=== PATIENT | male | born 1975 | race Caucasian/White ===

== ENCOUNTER 2016-09-28 05:16 | Emergency (ER) | payer BC, OTHER ==
[~2016-09-28] VITALS: Ht 190.5 cm; Wt 158.8 kg
[2016-09-28 06:06] LABS: Basophils # (auto) 0.1 uL; Basophils % (auto) 0.5 % (0.0-2.0); Eosinophils # (auto) 0.2 uL; Eosinophils % (auto) 1.5 % (0.0-7.0); Hemoglobin 16.4 g/dL (13.5-17.5); Lymphocytes # (auto) 2.3 uL; Lymphocytes % (auto) 19.6 % (10.0-50.0); Mean Corpuscular Hgb Conc. 33.5 g/dL (32.0-36.0); Mean Corpuscular Volume 83.7 fL (80.0-100.0); Monocytes # (auto) 0.8 uL; Monocytes % (auto) 6.9 % (0.0-12.0); Neutrophils # (auto) 8.4 uL; Neutrophils % (auto) 71.5 % (37.0-80.0); Platelet Count (auto) 236 10^3/uL (140-450); Red Cell Distribution Width 12.9 % (11.6-16.0); White Blood Cell 11.8 10^3/uL (4.4-10.8)
[2016-09-28 06:42] LABS: Albumin 3.5 g/dL (3.4-5.0); BUN/Creatinine Ratio 12.1; Bilirubin, Total 0.9 mg/dL (0.2-1.0); Calcium 8.8 mg/dL (8.5-10.1); Potassium 4.1 mmol/L (3.5-5.1); Total Protein 7.6 g/dL (6.4-8.2)
[2016-09-28] MEDS ORDERED: SODIUM CHLORIDE 0.9% 1,000 ML IVB ONE (07:09)
[2016-09-28] MEDS ORDERED: KETOROLAC TROMETH 30 MG/ML 1ML VIAL IV ONE (07:15)
[2016-09-28] MEDS ORDERED: ONDANSETRON HCL 4 MG/2 ML VIAL IV ONE (07:15)
[2016-09-28 07:35] VITALS: BP 144/80
[2016-09-28 07:46] LABS: Amylase 75 U/L (25-115)
== END 2016-09-28 09:04 | disposition home or self-care (01) ==
LOC: ER 05:17
DX: N20.9 Urinary calculus, unspecified (principal); R11.2 Nausea with vomiting, unspecified
CPT/HCPCS: 36415; 74176; 80053; 82150; 83690; 85025; 94761; 96361; 96374; 96375; 99285; J1885; J2405; J7030

== ENCOUNTER 2017-02-13 16:18 | Emergency (ER) | payer BC ==
[~2017-02-13] VITALS: Ht 190.5 cm; Wt 167.8 kg
[2017-02-13 21:14] LABS: Basophils # (auto) 0.1 uL; Basophils % (auto) 0.9 % (0.0-2.0); Eosinophils # (auto) 0.3 uL; Eosinophils % (auto) 3.9 % (0.0-7.0); Hematocrit 48.3 % (41.0-53.0); Hemoglobin 16.6 g/dL (13.5-17.5); Lymphocytes # (auto) 1.8 uL; Lymphocytes % (auto) 21.1 % (10.0-50.0); Mean Corpuscular Hemoglobin 29.6 pg (28.0-32.0); Mean Corpuscular Hgb Conc. 34.3 g/dL (32.0-36.0); Mean Corpuscular Volume 86.3 fL (80.0-100.0); Mean Platelet Volume 7.3 fL (6.9-10.8); Monocytes # (auto) 0.6 uL; Monocytes % (auto) 6.4 % (0.0-12.0); Neutrophils # (auto) 5.9 uL; Neutrophils % (auto) 67.7 % (37.0-80.0); Nucleated Red Blood Cells % 0.8 %; Platelet Count (auto) 259 10^3/uL (140-450); Red Cell Distribution Width 13.4 % (11.8-14.3); White Blood Cell 8.7 10^3/uL (4.4-10.8)
[2017-02-13 21:27] LABS: Urine Bilirubin Negative (Negative); Urine Blood 2+ /uL (Negative); Urine Color Yellow (Yellow); Urine Glucose Normal (Normal); Urine Ketone 2+ (Negative); Urine Mucus FEW (None Seen); Urine Nitrite Negative (Negative); Urine RBC 96 /hpf (0 - 3); Urine Squamous Epithelial Cell FEW /hpf (<5); Urine pH 5.5 (5.0-8.0)
[2017-02-13 21:33] LABS: Albumin 3.7 g/dL (3.4-5.0); BUN/Creatinine Ratio 16.8; Calcium 9.5 mg/dL (8.5-10.1); Potassium 3.7 mmol/L (3.5-5.1); Total Protein 8.6 g/dL (6.4-8.2)
[2017-02-13 21:48] LABS: INR 1.05 (0.9-1.15); Partial Thromboplastin Time 37.2 sec (22.64-33.71); Prothrombin Time 11.4 sec (9.37-12.3)
[2017-02-13] MEDS ORDERED: HYDROmorphone HCL 2 MG/ML VL IV ONE (22:30)
[2017-02-13] MEDS ORDERED: ONDANSETRON HCL 4 MG/2 ML VIAL IV ONE (22:30)
[2017-02-13] MEDS ORDERED: cefTRIAXone 1GM/50ML D5W 50 ML IV ONE (22:45)
[2017-02-14] MEDS ORDERED: HYDROmorphone HCL 2 MG/ML VL IV ONE (00:15)
[2017-02-14 00:41] VITALS: BP 127/69
== END 2017-02-14 01:43 | disposition home or self-care (01) ==
LOC: ER 16:21
DX: M79.605 Pain in left leg (principal); M79.89 Other specified soft tissue disorders; K21.9 Gastro-esophageal reflux disease without esophagitis; Z98.890 Other specified postprocedural states
CPT/HCPCS: 36415; 74176; 80053; 81001; 83690; 85025; 85610; 85730; 93971; 96365; 96375; 96376; 99285; J0696; J1170; J2405; J7030

== ENCOUNTER 2019-06-17 19:47 | Inpatient (IN) | payer BC ==
[~2019-06-17] VITALS: Ht 190.5 cm; Wt 156.0 kg
[2019-06-17] MEDS ORDERED: SODIUM CHLORIDE 0.9% 1,000 ML IV ONE (20:01)
[2019-06-17] MEDS ORDERED: ONDANSETRON HCL 4 MG/2 ML VIAL IV ONE (20:15)
[2019-06-17] MEDS ORDERED: DIPHENOXYLATE W/ATROPINE 2.5 MG TAB PO ONE (20:15)
[2019-06-17] MEDS ORDERED: KETOROLAC TROMETH 30 MG/ML 1ML VIAL IV ONE (20:15)
[2019-06-17] MEDS ORDERED: ACETAMINOPHEN 500 MG TAB PO ONE (20:15)
[2019-06-17 21:03] LABS: Basophils # (auto) 0 uL; Eosinophils # (auto) 0 uL; Eosinophils % (auto) 0.1 % (0.0-7.0); Lymphocytes # (auto) 0.4 uL; Monocytes # (auto) 0.2 uL
[2019-06-17 21:05] LABS: Basophils % (auto) 0.4 % (0.0-2.0); Hematocrit 25.3 % (41.0-53.0); Hemoglobin 8.8 g/dL (13.5-17.5); Lymphocytes % (auto) 9.5 % (10.0-50.0); Mean Corpuscular Hemoglobin 32.7 pg (28.0-32.0); Mean Corpuscular Hgb Conc. 34.9 g/dL (32.0-36.0); Mean Corpuscular Volume 93.4 fL (80.0-100.0); Monocytes % (auto) 3.4 % (0.0-12.0); Neutrophils # (auto) 3.8 uL; Neutrophils % (auto) 86.6 % (37.0-80.0); Nucleated Red Blood Cells % 1.6 %; Platelet Count (auto) 37 10^3/uL (140-450); Red Blood Cells 2.71 10^6/uL (4.5-5.90); White Blood Cell 4.4 10^3/uL (4.4-10.8)
[2019-06-17 21:08] LABS: Red Cell Distribution Width 20.3 % (11.8-14.3)
[2019-06-17 21:21] LABS: Albumin 2.8 g/dL (3.4-5.0); Anion Gap 13 (5-15); Blood Urea Nitrogen 22 mg/dL (7-18); Calcium 8.9 mg/dL (8.5-10.1); Carbon Dioxide 20 mmol/L (21-32); Chloride 108 mmol/L (98-107); Glucose 345 mg/dL (74-106); Magnesium 1.5 mg/dL (1.6-2.6); Potassium 3.7 mmol/L (3.5-5.1); Sodium 141 mmol/L (136-145)
[2019-06-17 21:26] LABS: Alanine Aminotransferase 23 U/L (16-61); Alkaline Phosphatase 99 U/L (45-117); Aspartate Aminotransferase 33 U/L (15-37); BUN/Creatinine Ratio 15.3; Bilirubin, Total 0.7 mg/dL (0.2-1.0); GFR African American 68 mL/min; GFR Non-African American 56 mL/min; Total Protein 6.6 g/dL (6.4-8.2)
[2019-06-17 23:51] LABS: Urine Bacteria MOD /hpf (None Seen); Urine Blood 1+ /uL (Negative); Urine Hyaline Cast MOD /lpf (0 - 2); Urine Mucus FEW (None Seen); Urine Specific Gravity 1.022 (1.001-1.035); Urine WBC 209 /hpf (0 - 3)
[2019-06-18] MEDS ORDERED: CEFTRIAXONE SODIUM 2 GM in D5W 5% 50 ML IV ONE (02:15)
[2019-06-18] MEDS ORDERED: ACETAMINOPHEN 325 MG TAB PO PRN (02:45)
[2019-06-18] MEDS ORDERED: DEXTROSE (50%) 50ML SYRG IV PRN (02:45)
[2019-06-18] MEDS ORDERED: TEMAZEPAM 15 MG CAP PO PRN (02:45)
[2019-06-18] MEDS ORDERED: SODIUM CHLORIDE 0.9% 1,000 ML IV SCH (02:45)
[2019-06-18] MEDS ORDERED: cefTRIAXone SOD 1,000 MG VL ONE (03:13)
[2019-06-18 03:47] VITALS: BP 106/69
[2019-06-18 04:00] VITALS: BP 106/69
[2019-06-18] MEDS: HYDROcodone-ACET 5/325MG TAB PO PRN ×3 (04:00→20:53)
[2019-06-18] MEDS: ONDANSETRON HCL 4 MG/2 ML VIAL IV PRN ×2 (04:00→21:04)
[2019-06-18] MEDS ORDERED: ATOR20TA50 PO (05:34)
[2019-06-18] MEDS ORDERED: OMEG120015 PO (05:34)
[2019-06-18] MEDS ORDERED: ALBU108A5 IN (05:34)
[2019-06-18] MEDS ORDERED: SEMA2INJ SC (05:34)
[2019-06-18] MEDS ORDERED: ONDA-143 PO (05:34)
[2019-06-18] MEDS ORDERED: SIRO1TAB4 PO (05:34)
[2019-06-18] MEDS ORDERED: CHOL200039 PO (05:34)
[2019-06-18] MEDS ORDERED: POM PO (05:34)
[2019-06-18] MEDS ORDERED: TACR0.5C3 PO (05:34)
[2019-06-18] MEDS ORDERED: LOSA25TA38 PO (05:34)
[2019-06-18] MEDS ORDERED: HYDR2TAB58 PO (05:34)
[2019-06-18] MEDS ORDERED: DIPH2.5T73 PO (05:34)
[2019-06-18] MEDS ORDERED: PRO10T PO (05:34)
[2019-06-18] MEDS ORDERED: SILD50TA42 PO (05:34)
[2019-06-18] MEDS ORDERED: BUDE9TAB PO (05:34)
[2019-06-18] MEDS ORDERED: ACYC1CAP23 PO (05:34)
[2019-06-18] MEDS ORDERED: TACR1CAP4 PO (05:34)
[2019-06-18] MEDS ORDERED: PANT1INJ3 PO (05:34)
[2019-06-18] MEDS ORDERED: INSU100I49 SC ×3 (05:34)
[2019-06-18] MEDS ORDERED: INSLANTI SC (05:34)
[2019-06-18] MEDS ORDERED: POSA100T PO (05:34)
[2019-06-18] MEDS ORDERED: [UNRECOGNIZED DRUG - CODE] PO (05:34)
[2019-06-18] MEDS: SUCRALFATE 1 GM TAB PO SCH ×2 (06:05→06:25)
[2019-06-18] MEDS: ACCU-CHEK COMFORT CURVE STRIP VI SCH ×3 (06:05→18:00)
[2019-06-18] MEDS: InsuLIN REG 1unit/0.01ml Soln (100units/ml) SC SCH ×3 (06:24→18:00)
[2019-06-18] MEDS ORDERED: cefTRIAXone 1GM/50ML D5W 50 ML IV SCH (09:00)
[2019-06-18 09:11] LABS: Lactic Acid w/Reflex 2.3 mmol/L (0.4-2.0)
[2019-06-18] MEDS: OMEPRAZOLE 20MG/10ML ORAL SUSP PO SCH (10:13)
[2019-06-18 12:30] VITALS: BP 103/60
[2019-06-18] MEDS ORDERED: VANCOMYCIN HCL 125MG/5ML ORAL SOL GT ONE (12:30)
[2019-06-18] MEDS: SODIUM CHLORIDE 0.9% 1,000 ML IV SCH ×2 (12:30→20:53)
[2019-06-18] MEDS ORDERED: PIPERACILLIN-TAZO 4.5GM 100 ML IV ONE (12:30)
[2019-06-18 14:20] LABS: Lactic Acid w/Reflex 2.2 mmol/L (0.4-2.0)
[2019-06-18 17:16] VITALS: BP 108/70
[2019-06-18] MEDS: SUCRALFATE 1 GM/10 ML ORAL SUSP PO SCH ×3 (17:39→22:58)
[2019-06-18] MEDS: VANCOMYCIN HCL 125MG/5ML ORAL SOL PO SCH ×2 (17:52→17:53)
[2019-06-18] MEDS ORDERED: PIPERACILLIN-TAZO 4.5GM 100 ML IV SCH (18:00)
[2019-06-18] MEDS: ACETAMINOPHEN 650 mg PER 20 mL UD PO PRN (20:53)
[2019-06-18] MEDS: PIPERACILLIN-TAZO 4.5GM 100 ML IV SCH (20:54)
[2019-06-18] MEDS: ATORVASTATIN 20 MG TAB PO SCH (22:39)
[2019-06-18] MEDS: LOPERAMIDE HCL 2 MG CAP PO PRN (22:39)
[2019-06-18] MEDS: FLORASTOR (S. BOULARDII) 250 MG CAP PO SCH (22:39)
[2019-06-19] VITALS (13 sets, daily range): BP systolic 92–164; BP diastolic 42–78
[2019-06-19] MEDS: ACCU-CHEK COMFORT CURVE STRIP VI SCH ×5 (00:32→23:41)
[2019-06-19] MEDS: InsuLIN REG 1unit/0.01ml Soln (100units/ml) SC SCH ×6 (00:33→23:41)
[2019-06-19] MEDS: PIPERACILLIN-TAZO 4.5GM 100 ML IV SCH ×2 (00:34→06:38)
[2019-06-19] MEDS ORDERED: PIPERACILLIN-TAZO 4.5GM 100 ML IV ONE (05:53)
[2019-06-19 06:16] LABS: Hematocrit 19.1 % (41.0-53.0); Mean Corpuscular Hgb Conc. 35.3 g/dL (32.0-36.0); Mean Corpuscular Volume 93.5 fL (80.0-100.0); Red Blood Cells 2.04 10^6/uL (4.5-5.90); White Blood Cell 3.4 10^3/uL (4.4-10.8)
[2019-06-19 06:25] LABS: BUN/Creatinine Ratio 17.6; Calcium 7.3 mg/dL (8.5-10.1)
[2019-06-19 06:27] LABS: Potassium 2.9 mmol/L (3.5-5.1)
[2019-06-19 06:28] LABS: Red Cell Distribution Width 20.6 % (11.8-14.3)
[2019-06-19 06:29] LABS: Hemoglobin 6.7 g/dL (13.5-17.5); Lactic Acid w/Reflex 2.3 mmol/L (0.4-2.0)
[2019-06-19 06:30] LABS: Platelet Count (auto) 19 10^3/uL (140-450)
[2019-06-19] MEDS: SUCRALFATE 1 GM/10 ML ORAL SUSP PO SCH ×4 (06:37→20:47)
[2019-06-19] MEDS: VANCOMYCIN HCL 125MG/5ML ORAL SOL PO SCH ×4 (06:38→20:41)
[2019-06-19] MEDS: SODIUM CHLORIDE 0.9% 1,000 ML IV SCH (06:39)
[2019-06-19] MEDS ORDERED: POTASSIUM CHL 20 Meq TABLET PO ONE (07:15)
[2019-06-19 08:15] LABS: Basophils % (manual) 0 (0.0-2.0); Blast Cells 0; Eosinophils % (manual) 0 (0-7); Promyelocytes % 0; Reactive Lymphocytes 0
[2019-06-19 08:21] LABS: Band Neutrophils % (manual) 32; Lymphocytes % (manual) 6 (10.0-50.0); Metamyelocytes % 3; Monocytes % (manual) 1 (0-12); Myelocytes % 2
[2019-06-19] MEDS: ONDANSETRON HCL 4 MG/2 ML VIAL IV PRN ×3 (09:39→21:10)
[2019-06-19] MEDS: FLORASTOR (S. BOULARDII) 250 MG CAP PO SCH ×3 (10:00→20:49)
[2019-06-19] MEDS ORDERED: POTASSIUM CHLORIDE 40 MEQ, LIDOCAINE 1% (LOCAL ANESTH.) 4 ML in SODIUM CHL 0.9% 100 ML IV ONE (10:15)
[2019-06-19] MEDS ORDERED: VANCOMYCIN PER PHARMACY 0 MG IV SCH (10:30)
[2019-06-19] MEDS ORDERED: MAGNESIUM SULFATE 1GM/100ML 100 ML IV SCH ×2 (11:00)
[2019-06-19] MEDS: OMEPRAZOLE 20MG/10ML ORAL SUSP PO SCH (11:30)
[2019-06-19] MEDS: SOD CHL 0.45% WITH 20MEQ KCL 1,000 ML IV SCH ×2 (11:33→23:35)
[2019-06-19] MEDS: VANCOMYCIN 1GM/250ML 250 ML IV SCH ×2 (13:25→19:41)
[2019-06-19] MEDS: MEROPENEM 1GM IVPB 100 ML IV SCH ×2 (14:00→21:56)
[2019-06-19] MEDS ORDERED: POTASSIUM CHLORIDE 20 MEQ, LIDOCAINE 1% (LOCAL ANESTH.) 2 ML in SODIUM CHL 0.9% 100 ML IV ONE (15:00)
[2019-06-19] MEDS: MAGNESIUM SULFATE 1GM/100ML 100 ML IV SCH ×4 (15:25→18:22)
[2019-06-19] MEDS: ACETAMINOPHEN 650 mg PER 20 mL UD PO PRN (15:47)
[2019-06-19] MEDS: LOPERAMIDE HCL 2 MG CAP PO PRN (15:47)
[2019-06-19] MEDS: HYDROcodone-ACET 5/325MG TAB PO PRN (18:19)
[2019-06-19] MEDS: ATORVASTATIN 20 MG TAB PO SCH (20:47)
[2019-06-20] VITALS (11 sets, daily range): BP systolic 119–157; BP diastolic 51–99
[2019-06-20] MEDS: ACETAMINOPHEN 650 mg PER 20 mL UD PO PRN ×2 (00:19→18:16)
[2019-06-20] MEDS: VANCOMYCIN 1GM/250ML 250 ML IV SCH ×3 (01:00→12:39)
[2019-06-20] MEDS: ONDANSETRON HCL 4 MG/2 ML VIAL IV PRN ×3 (01:22→22:51)
[2019-06-20] MEDS: VANCOMYCIN HCL 125MG/5ML ORAL SOL PO SCH ×4 (04:19→22:38)
[2019-06-20] MEDS: SUCRALFATE 1 GM/10 ML ORAL SUSP PO SCH ×4 (06:04→22:36)
[2019-06-20] MEDS: InsuLIN REG 1unit/0.01ml Soln (100units/ml) SC SCH ×3 (06:05→17:52)
[2019-06-20] MEDS: ACCU-CHEK COMFORT CURVE STRIP VI SCH ×3 (06:05→17:52)
[2019-06-20 06:16] LABS: White Blood Cell 2.1 10^3/uL (4.4-10.8)
[2019-06-20 06:18] LABS: Hematocrit 24.3 % (41.0-53.0); Hemoglobin 8.4 g/dL (13.5-17.5); Mean Corpuscular Hemoglobin 30.8 pg (28.0-32.0); Mean Corpuscular Hgb Conc. 34.4 g/dL (32.0-36.0); Mean Corpuscular Volume 89.4 fL (80.0-100.0); Red Blood Cells 2.72 10^6/uL (4.5-5.90)
[2019-06-20 06:20] LABS: Red Cell Distribution Width 22.1 % (11.8-14.3)
[2019-06-20 06:21] LABS: Platelet Count (auto) 15 10^3/uL (140-450)
[2019-06-20 06:22] LABS: Basophils % (manual) 0 (0.0-2.0); Blast Cells 0; Eosinophils % (manual) 0 (0-7); Promyelocytes % 0; Reactive Lymphocytes 0
[2019-06-20 06:24] LABS: Potassium 3.6 mmol/L (3.5-5.1)
[2019-06-20 06:32] LABS: BUN/Creatinine Ratio 17.7; Calcium 7.7 mg/dL (8.5-10.1); Magnesium 2.4 mg/dL (1.6-2.6)
[2019-06-20] MEDS: MEROPENEM 1GM IVPB 100 ML IV SCH ×3 (06:44→22:35)
[2019-06-20 07:06] LABS: Band Neutrophils % (manual) 16; Lymphocytes % (manual) 8 (10.0-50.0); Metamyelocytes % 2; Monocytes % (manual) 4 (0-12); Myelocytes % 1
[2019-06-20] MEDS: OMEPRAZOLE 20MG/10ML ORAL SUSP PO SCH (09:51)
[2019-06-20] MEDS: HYDROcodone-ACET 5/325MG TAB PO PRN (09:51)
[2019-06-20] MEDS: FLORASTOR (S. BOULARDII) 250 MG CAP PO SCH ×3 (09:53→22:38)
[2019-06-20] MEDS: ACYCLOVIR 400 MG TAB PO SCH ×2 (12:35→22:37)
[2019-06-20] MEDS: SOD CHL 0.45% WITH 20MEQ KCL 1,000 ML IV SCH (13:16)
[2019-06-20] MEDS ORDERED: ATORVASTATIN 20 MG TAB PO SCH (22:00)
[2019-06-21] VITALS: BP 145/84
[2019-06-21] MEDS ORDERED: VANCOMYCIN 1GM/250ML 250 ML IV SCH
[2019-06-21] MEDS: InsuLIN REG 1unit/0.01ml Soln (100units/ml) SC SCH ×4 (01:36→18:00)
[2019-06-21 04:00] VITALS: BP 148/85
[2019-06-21] MEDS: ONDANSETRON HCL 4 MG/2 ML VIAL IV PRN ×2 (05:29→11:39)
[2019-06-21] MEDS: MEROPENEM 1GM IVPB 100 ML IV SCH ×2 (05:29→13:49)
[2019-06-21] MEDS: VANCOMYCIN HCL 125MG/5ML ORAL SOL PO SCH ×3 (05:31→11:21)
[2019-06-21] MEDS: ACCU-CHEK COMFORT CURVE STRIP VI SCH ×4 (06:00→18:00)
[2019-06-21 06:14] LABS: Hematocrit 22.7 % (41.0-53.0)
[2019-06-21 06:16] LABS: Hemoglobin 7.8 g/dL (13.5-17.5); Mean Corpuscular Hemoglobin 30.5 pg (28.0-32.0); Mean Corpuscular Hgb Conc. 34.4 g/dL (32.0-36.0); Mean Corpuscular Volume 88.7 fL (80.0-100.0); Red Blood Cells 2.56 10^6/uL (4.5-5.90)
[2019-06-21 06:18] LABS: Red Cell Distribution Width 22.5 % (11.8-14.3); White Blood Cell 1.6 10^3/uL (4.4-10.8)
[2019-06-21 06:19] LABS: Basophils % (manual) 0 (0.0-2.0); Blast Cells 0; Eosinophils % (manual) 0 (0-7); Platelet Count (auto) 14 10^3/uL (140-450); Promyelocytes % 0; Reactive Lymphocytes 0
[2019-06-21 06:31] LABS: Calcium 8.5 mg/dL (8.5-10.1); Potassium 3.3 mmol/L (3.5-5.1)
[2019-06-21 06:33] LABS: BUN/Creatinine Ratio 14.1
[2019-06-21 06:55] LABS: Band Neutrophils % (manual) 18; Lymphocytes % (manual) 11 (10.0-50.0); Metamyelocytes % 2; Monocytes % (manual) 9 (0-12); Myelocytes % 1
[2019-06-21] MEDS: SUCRALFATE 1 GM/10 ML ORAL SUSP PO SCH ×3 (07:00→17:00)
[2019-06-21 08:00] VITALS: BP 138/84
[2019-06-21] MEDS: SOD CHL 0.45% WITH 20MEQ KCL 1,000 ML IV SCH ×2 (08:37→15:35)
[2019-06-21] MEDS ORDERED: LOSARTAN POTASSIUM 25 MG TAB PO SCH (10:00)
[2019-06-21] MEDS ORDERED: POTASSIUM EFFERVESENT TAB 25 MEQ PO ONE (10:00)
[2019-06-21] MEDS: OMEPRAZOLE 20MG/10ML ORAL SUSP PO SCH (11:21)
[2019-06-21] MEDS: ACYCLOVIR 400 MG TAB PO SCH (11:21)
[2019-06-21] MEDS: FLORASTOR (S. BOULARDII) 250 MG CAP PO SCH (11:23)
[2019-06-21] MEDS: ACETAMINOPHEN 650 mg PER 20 mL UD PO PRN (11:36)
[2019-06-21 12:00] VITALS: BP 133/85
[2019-06-21 16:00] VITALS: BP 124/67
[2019-06-21] MEDS ORDERED: PIPERACILLIN-TAZOB 2.25GM 50 ML IV SCH (18:00)
[2019-06-21] MEDS ORDERED: FILGRASTIM (TBO) 300 MCG/0.5 ML SYRG SC ONE (18:30)
[2019-06-21] MEDS ORDERED: SIROLIMUS 1 MG PO SCH (18:45)
[2019-06-21] MEDS ORDERED: TACROLIMUS 1 MG CAP PO SCH (22:00)
== END 2019-06-21 19:27 | disposition short-term general hospital (02) | DRG 871 ==
LOC: EDBD 19:47 → ER 19:49 → OVERFLOW 19:50 → CENTRAL 06-18 03:47 → DOU IN ICU 06-19 11:50
PROVIDERS: ADMIT Nurse Practitioner; ATTEND Internal Medicine
PROC: 30233N1 Transfusion of Nonautologous Red Blood Cells into Peripheral Vein, Percutaneous Approach (ICD-10-PCS; 2019-06-19)
PROC: 30233R1 Transfusion of Nonautologous Platelets into Peripheral Vein, Percutaneous Approach (ICD-10-PCS; principal; 2019-06-20)
DX: A41.2 Sepsis due to unspecified staphylococcus (principal); J96.01 Acute respiratory failure with hypoxia; N17.0 Acute kidney failure with tubular necrosis; N39.0 Urinary tract infection, site not specified; D61.818 Other pancytopenia; K61.0 Anal abscess; Z94.84 Stem cells transplant status; J98.11 Atelectasis; C95.90 Leukemia, unspecified not having achieved remission; R65.20 Severe sepsis without septic shock; K21.9 Gastro-esophageal reflux disease without esophagitis; E11.65 Type 2 diabetes mellitus with hyperglycemia; E66.01 Morbid (severe) obesity due to excess calories; N50.89 Other specified disorders of the male genital organs; E87.6 Hypokalemia; Z82.49 Family history of ischemic heart disease and other diseases of the circulatory system; Z87.891 Personal history of nicotine dependence
CPT/HCPCS: 36415; 71045; 71250; 74176; 76870; 80048; 80053; 80202; 81001; 82962; 83036; 83605; 83735; 83880; 84484; 85007; 85025; 85027; 86141; 86850; 86900; 86901; 86920; 87040; 87045; 87070; 87076; 87077; 87086; 87186; 87205; 87427; 87493; 87804; G0378; J0696; J1447; J1815; J1885; J2001; J2185; J2405; J2543; J7060; J7507